=== PATIENT | female | born 1940 | race Asian ===

== ENCOUNTER → 2017-09-01 | Outpatient (CLI) | payer MEDICARE, OTHER | LOC: M LRY 13:28 | DX: M18.11 Unilateral primary osteoarthritis of first carpometacarpal joint, right hand (principal); M19.041 Primary osteoarthritis, right hand; M25.531 Pain in right wrist | CPT/HCPCS: 73110; G0463 ==

== ENCOUNTER → 2017-10-16 | Outpatient (CLI) | payer MEDICARE, OTHER ==
[2017-10-16 13:05] LABS: BASO # 0.1 10^3/uL (0.0-0.2); BASO % 0.6 % (0.0-1.0); EOS # 0.2 10^3/uL (0.0-0.50); EOS % 1.8 % (0.0-3.0); HEMATOCRIT 44.6 % (36.0-47.0); HEMOGLOBIN 14.2 g/dl (12.0-15.5); IMMATURE GRANULOCYTE % 0.4 % (0-3.0); LYMPH # 2.8 10^3/uL (1.5-4.5); LYMPH % 33.9 % (24.0-44.0); MEAN CORPUSCULAR HEMOGLOBIN 30.5 pg (27.0-33.0); MEAN CORPUSCULAR HGB CONC 31.8 g/dl (32.0-36.5); MEAN CORPUSCULAR VOLUME 95.9 fl (80.0-96.0); MONO # 0.7 10^3/uL (0.0-0.8); MONO % 8.9 % (0.0-5.0); NEUTROPHILS # 4.5 10^3/uL (1.8-7.7); NEUTROPHILS % 54.4 % (36.0-66.0); PLATELET COUNT, AUTOMATED 224 10^3/uL (150-450); RED BLOOD COUNT 4.65 10^6/uL (4.00-5.40); RED CELL DISTRIBUTION WIDTH 13.3 % (11.5-14.5); WHITE BLOOD COUNT 8.2 10^3/uL (4.0-10.0)
[2017-10-16 13:32] LABS: ESTIMATED AVERAGE GLUCOSE 272 MG/DL (60-110); HEMOGLOBIN A1c 11.1 %
[2017-10-16 13:36] LABS: ALBUMIN 3.5 GM/DL (3.2-5.2); ALBUMIN/GLOBULIN RATIO 0.92 (1.00-1.93); ALKALINE PHOSPHATASE 108 U/L (45-117); ALT/SGPT 29 U/L (12-78); ANION GAP 8 MEQ/L (8-16); AST/SGOT 20 U/L (7-37); BILIRUBIN,TOTAL 0.4 MG/DL (0.2-1.0); BLOOD UREA NITROGEN 33 MG/DL (7-18); CALCIUM LEVEL 9.4 MG/DL (8.8-10.2); CARBON DIOXIDE LEVEL 27 MEQ/L (21-32); CHLORIDE LEVEL 104 MEQ/L (98-107); CHOLESTEROL LEVEL 110 MG/DL (<200); CREATININE FOR GFR 1.77 MG/DL (0.55-1.30); GLOMERULAR FILTRATION RATE 29.8 (>39); GLUCOSE, FASTING 178 MG/DL (70-100); HDL CHOLESTEROL 47 MG/DL (>40); NON-HDL-C 63 MG/DL; POTASSIUM SERUM 4.9 MEQ/L (3.5-5.1); SODIUM LEVEL 139 MEQ/L (136-145); THYROID STIMULATING HORMONE 0.649 uIU/ML (0.358-3.740); TOTAL PROTEIN 7.3 GM/DL (6.4-8.2); TRIGLYCERIDES LEVEL 160 MG/DL (<150)
== END ==
LOC: M SMT 08:18
DX: Z13.220 Encounter for screening for lipoid disorders (principal); E11.9 Type 2 diabetes mellitus without complications
CPT/HCPCS: 84443

== ENCOUNTER → 2018-10-21 | Outpatient (CLI) | payer MEDICARE, OTHER ==
[~2018-10-21] MED LIST: ABIL2TAB PO; ACET-897 PO; AMLO5TAB6 PO; ARIP1TAB4 PO; ASPI81CH33 PO; ASPI81TA2 PO; CALC1TAB29 PO; CALC250T PO; CRES20TA2 PO; CYMB60CA3 PO; DICL1GEL3 TOP; FISH1000 PO; GLIP5TAB2 PO; HUMA100I SC; HUMA100I3 SC; HUMA100I5 SC; IBUP200C PO; INSULANT SC; LANTINJ4 SC; LIPI20TA PO; LISI5TAB PO; LOSA50TA88 PO; MICA40TA PO; MOBI4TAB PO; MONT10TA2 PO; NEXI40GR PO; ONE-TAB25 PO; OYSCTAB3 PO; SENO8.6T10 PO; SITA50TAB PO; [UNRECOGNIZED DRUG - REMARK]
--- NOTE | 2018-10-21 11:10 | REP ---
Right ankle four views: I suspect soft tissue edema laterally. This should be confirmed clinically. There is no fracture or dislocation. The mortise is symmetric. There are no calcifications or foreign bodies. Impression: Soft tissue edema. No fracture. Electronically Signed by Armond Alvarez MD 10/21/2018 11:02 A
--- NOTE | 2018-10-21 11:11 | REP ---
Right foot four views : There is no fracture or dislocation. Mineralization and joint spaces are normal. There are no calcifications or foreign bodies. Impression: Negative right foot . Electronically Signed by Armond Alvarez MD 10/21/2018 11:03 A
== END ==
LOC: M LRY 10:48
PROVIDERS: ATTEND Nurse Practitioner Family
DX: M25.471 Effusion, right ankle (principal); S99.911A Unspecified injury of right ankle, initial encounter; S99.921A Unspecified injury of right foot, initial encounter; W17.89XA Other fall from one level to another, initial encounter; Y92.9 Unspecified place or not applicable
CPT/HCPCS: 73610; 73630; G0463

== ENCOUNTER 2018-10-31 19:21 | Inpatient (IN) | payer MEDICARE, OTHER ==
[~2018-10-31] VITALS: Ht 157.5 cm; Wt 77.6 kg
[~2018-10-31 19:21] MED LIST changes: -ACET-897 PO; -AMLO5TAB6 PO; -ASPI81CH33 PO; -CALC1TAB29 PO; -CRES20TA2 PO; -DICL1GEL3 TOP; -HUMA100I3 SC; -HUMA100I5 SC; -LANTINJ4 SC; -LOSA50TA88 PO; -MICA40TA PO; -ONE-TAB25 PO
[2018-10-31 20:10] LABS: HEMATOCRIT 39.9 % (36.0-47.0); HEMOGLOBIN 12.8 g/dl (12.0-15.5); MEAN CORPUSCULAR HGB CONC 32.1 g/dl (32.0-36.5); MEAN CORPUSCULAR VOLUME 96.6 fl (80.0-96.0); PLATELET COUNT, AUTOMATED 154 10^3/uL (150-450); RED BLOOD COUNT 4.13 10^6/uL (4.00-5.40); WHITE BLOOD COUNT 7.8 10^3/uL (4.0-10.0)
[2018-10-31 20:41] LABS: ALBUMIN 3.5 GM/DL (3.2-5.2); BILIRUBIN,TOTAL 0.3 MG/DL (0.2-1.0); CALCIUM LEVEL 9.1 MG/DL (8.8-10.2); CREATININE FOR GFR 2.74 MG/DL (0.55-1.30); GLOMERULAR FILTRATION RATE 17.9 (>39); POTASSIUM SERUM 5.8 MEQ/L (3.5-5.1); TOTAL PROTEIN 6.8 GM/DL (6.4-8.2)
[2018-10-31] MEDS ORDERED: LEVEMIR (INSULIN DETEMIR) 1 UNITS/0.01ML SC SCH (21:00)
[2018-10-31] MEDS ORDERED: ROSUVASTATIN 10 MG TAB (CRESTOR) PO SCH (21:00)
[2018-10-31] MEDS ORDERED: DULoxetine 30 MG CAP (CYMBALTA) PO SCH (21:00)
[2018-10-31] MEDS ORDERED: HumaLOG INSULIN (NovoLOG) PER UNIT SC SCH (21:00)
[2018-10-31] MEDS ORDERED: HUMA100I3 SC (21:00)
[2018-10-31] MEDS ORDERED: CRES20TA2 PO (21:07)
[2018-10-31] MEDS ORDERED: ONE-TAB25 PO (21:07)
[2018-10-31] MEDS ORDERED: ASPI81CH33 PO (21:07)
[2018-10-31] MEDS ORDERED: CALC1TAB29 PO (21:07)
[2018-10-31] MEDS ORDERED: LANTINJ4 SC (21:07)
[2018-10-31] MEDS ORDERED: CYMB60CA3 PO (21:07)
[2018-10-31] MEDS ORDERED: LOSA50TA88 PO (21:07)
[2018-10-31] MEDS ORDERED: SOD POLYSTYRENE SULFONATE SUSP 15 GM/60 ML UD PO ONE (21:30)
[2018-10-31] MEDS ORDERED: ALBUTEROL SULFATE 2.5 MG/0.5 ML INH NEB SOLN INH ONE (21:30)
[2018-10-31] MEDS ORDERED: NS 1,000 ML IV ONE (21:30)
[2018-10-31] MEDS ORDERED: ACET-897 PO (22:16)
[2018-10-31] MEDS ORDERED: MICA40TA PO (22:16)
[2018-10-31] MEDS ORDERED: HUMA100I5 SC (22:16)
[2018-10-31] MEDS ORDERED: DICL1GEL3 TOP (22:16)
--- NOTE | 2018-10-31 22:39 | ECGEPIP ---
[facility] - ED Test Date: 2018-10-31 Pat Name: BASHIR LUGO Department: Room: - Gender: Female Dairy Specialist: carlos : 1940 Requested By: MICHAEL Blevins Order Number: [id number] Reading MD: Hay Arshad Measurements Intervals [place] Rate: 70 P: 14 SC: 182 QRS: -2 QRSD: 84 T: 68 QT: 399 QTc: 433 Interpretive Statements SINUS RHYTHM NONSPECIFIC T-WAVE ABNORMALITY NO PRIORS FOR COMPARISON Electronically Signed on 10-31-2018 22:39:26 EDT by Hay Arshad
[2018-10-31] MEDS ORDERED: ACETAMINOPHEN TAB 650MG DOSE (2X325MG) PO PRN (23:45)
[2018-11-01] VITALS (7 sets, daily range): BP systolic 107–164; BP diastolic 59–88
[2018-11-01] MEDS ORDERED: ACETAMINOPHEN 500 MG TAB PO PRN (00:15)
[2018-11-01] MEDS ORDERED: DEXTROSE 50% 50 ML SYRINGE IV PRN (00:15)
[2018-11-01] MEDS ORDERED: GLUCOSE 4 GM CHEW TABLET PO PRN (00:15)
[2018-11-01] MEDS ORDERED: GLUCAGON FOR INJ 1 MG VIAL (J1610) SC PRN (00:15)
[2018-11-01] MEDS ORDERED: traMADol 50 MG TAB PO PRN (00:15)
--- NOTE | 2018-11-01 00:39 | HPEPDOC ---
[facility] Medical History & Physical Date of Admission Nov 01, 2018 Date of Service: Nov 01, 2018 Attending Physician: NERY COLEMAN MD History and Physical CHIEF COMPLAINT: Dizziness and weaknesS HISTORY OF PRESENT ILLNESS: 78-year-old female with past medical history of COPD,CKD, hypertension, diabetes. Patient was having some dizziness and weakness and body itching. In the ER blood work done creatine 2.74 , up from 1.7 in 2018 and potassium 5.8. Patient started an IV fluid and referred to us for admission. Patient denied chest pain or shortness of breath. No nausea, vomiting. Patient will be admitted for further management PAST MEDICAL HISTORY: Diabetes type 2 Hypertension GERD CKD Hyperlipidemia Depression Anxiety SOCIAL HISTORY: Patient is , lives at home. She smokes but denies other drug use FAMILY HISTORY: She claimed both parents all H 80s to 90s with no history ALLERGIES: Please see below. REVIEW OF SYSTEMS: Positive weakness, positive dizziness. Positive itchy. The rest of the 12 point review of system normal HOME MEDICATIONS: Please see below. PHYSICAL EXAMINATION: VITAL SIGNS: Temperature , pulse , respiratory rate , blood pressure , pulse oximetry % on room air. GENERAL APPEARANCE: Awake, no distress HEENT: Unremarkable CARDIOVASCULAR: S1, S2, regular, no murmur LUNGS: Clear bilaterally. No wheezes, no rhonchi ABDOMEN: Soft, positive bowel sounds, nontender MUSCULOSKELETAL: No edema, 2+ pulses. Her extremity NEUROLOGICAL: Alert, oriented 4. nonfocal PSYCHIATRIC:Calm LABORATORY DATA: See below. IMAGING: EKG review, normal sinus rhythm no abnormalities MICROBIOLOGY: Please see below. ASSESSMENT/PLAN #1 acute on chronic renal failure. Hydration and monitor BUN/creatinine #2. Dizziness. Likely from renal failure Patient denied dizziness at present. #3. Weakness Secondary to renal failure. Hydration for now failure and likely patient will improve #4. Hyperkalemia Patient received Kayexalate and IV fluid. Repeat potassium. #5 hypertension On medication social monitor blood pressure closely #6. Hypercholesterolemia Continue medication #7. Depression and anxiety Medication #8 GERD on medication #9. Diabetes type 2 Accu-Chek with insulin coverage Heparin subcutaneous for DVT prophylaxis. Discussed with Dr. Coleman hospitalists. Monitor BUN and creatinine. We will reconcile medications when available. Spent 45 Minutes Vital Signs Vital Signs Date Time Temp Pulse Resp B/P (MAP) Pulse Ox O2 Delivery O2 Flow Rate FiO2 10/31/18 20:08 10/31/18 19:24 97.9 85 16 96 Room Air Laboratory Data Labs 24H Laboratory Tests 2 10/31/18 19:55: Nucleated Red Blood Cells % (auto) 0.0, Anion Gap 8, Glomerular Filtration Rate 17.9L, Blood Urea Nitrogen 38H, Creatinine 2.74H, Sodium Level 133L, Potassium Level 5.8H, Chloride Level 98, Carbon Dioxide Level 27, Calcium Level 9.1, Aspartate Amino Transf (AST/SGOT) 23, Alanine Aminotransferase (ALT/SGPT) 26, Alkaline Phosphatase 118H, Total Bilirubin 0.3, Total Protein 6.8, Albumin 3.5, Albumin/Globulin Ratio 1.06 CBC/BMP Laboratory Tests 10/31/18 19:55 Red Blood Count 4.13, Mean Corpuscular Volume 96.6 H, Mean Corpuscular Hemoglobin 31.0, Mean Corpuscular Hemoglobin Concent 32.1, Red Cell Distribution Width 13.7, Calcium Level 9.1, Aspartate Amino Transf (AST/SGOT) 23, Alanine Aminotransferase (ALT/SGPT) 26, Alkaline Phosphatase 118 H, Total Bilirubin 0.3, Total Protein 6.8, Albumin 3.5 Home Medications Scheduled Aspirin (Aspirin) 81 Mg Tab.chew, 81 MG PO DAILY Calcium Carbonate/Vitamin D3 (Calcium 600-Vit D3 800 Tablet) 1 Each Tablet, 1 TAB PO BID Duloxetine Hcl (Cymbalta) 60 Mg Capsule.dr, 60 MG PO QHS Insulin Glargine,Hum.rec.anlog (Lantus Solostar) 100 Unit/1 Ml Insuln.pen, 20 UNITS SC QHS Insulin Lispro (Humalog Kwikpen U-100) 100 Unit/1 Ml Insuln.pen, 1 DOSE SC DAILY 6-8 UNITS DAILY AROUND BREAKFAST Multivitamin (One Daily Multivitamin) 1 Each Tablet, 1 TAB PO DAILY Rosuvastatin Calcium (Crestor) 20 Mg Tablet, 20 MG PO QHS Telmisartan (Micardis) 40 Mg Tablet, 20 MG PO DAILY Scheduled PRN Acetaminophen (Tylenol Extra Strength) 500 Mg Tablet, 1,000 MG PO Q4H PRN for PAIN Diclofenac Sodium (Diclofenac Sodium) 1% 100GM Gel..gram., 2 GM TOP QID PRN for PAIN APPLIES TO RIGHT FOOT/ANKLE Allergies Coded Allergies: No Known Allergies (Unverified , 10/31/18) A-FIB/CHADSVASC A-FIB History Current/History of A-Fib/PAF?: No Current PO Anticoag Therapy: No KRYSTYNA BLAIR PA-C Nov 01, 2018 00:38
[2018-11-01] MEDS: DOCUSATE SODIUM 100 MG CAP PO SCH ×2 (02:07→09:35)
[2018-11-01] MEDS: NS 1,000 ML IV SCH ×2 (02:07→11:34)
[2018-11-01] MEDS ORDERED: HEPARIN SOD (PORCINE) 5000 UNITS/ML VIAL SQ SCH (06:00)
[2018-11-01] MEDS: HumaLOG INSULIN (NovoLOG) PER UNIT SC SCH ×3 (07:30→17:30)
[2018-11-01 07:43] LABS: CALCIUM LEVEL 8.3 MG/DL (8.8-10.2); CREATININE FOR GFR 2.14 MG/DL (0.55-1.30); GLOMERULAR FILTRATION RATE 23.9 (>39)
[2018-11-01] MEDS ORDERED: AMLO5TAB6 PO (08:48)
--- NOTE | 2018-11-01 08:55 | IPNPDOC ---
Date Seen The patient was seen on 11/01/18. Progress Note SUBJECTIVE: pt wants to go home. repeat creatinine still higher than baseline of 1.7. k5. no c/o pain,sob, weakness, nausea, vomiting,abd pain.repeat mp at noon and 7pm and plans for dc if k<5 and creatinine<1.8 with outpt fu w pcp and fabrication mig welder within 5days of discharge. Pt placed on low potassium renal diet. PHYSICAL EXAMINATION: VITAL SIGNS:pls see below GENERAL APPEARANCE: Awake, no distress HEENT: Unremarkable CARDIOVASCULAR: S1, S2, regular, no murmur LUNGS: Clear bilaterally. No wheezes, no rhonchi ABDOMEN: Soft, positive bowel sounds, nontender MUSCULOSKELETAL: No edema, 2+ pulses. Her extremity NEUROLOGICAL: Alert, oriented 4. nonfocal PSYCHIATRIC:Calm LABORATORY DATA: See below. IMAGING: see below EKG review, normal sinus rhythm no abnormalities MICROBIOLOGY: Please see below. ASSESSMENT/PLAN 78-year-old female with past medical history of COPD,CKD, hypertension, diabetes. Patient was having some dizziness and weakness and body itching. In the ER blood work done creatine 2.74 , up from 1.7 in 2018 and potassium 5.8. Patient started an IV fluid and referred to us for admission. Patient denied chest pain or shortness of breath. No nausea, vomiting. Patient will be admitted for further management acute on chronic renal failure 3. baseline creatinine 1.7 ARB discontinued and trial of ivfluids with NS at 100ml/hr repeat mp at noon and 7pm avoiding nephrotoxins, and renally dosing meds strict i/o no signs of metabolic acidosis, persistent hyperkalemia, or fluid overload yet no c/o obstructive uropathy and denies any hematuria, flank pain, to necessitate imaging to rule out kidney stones. Dizziness. Likely from renal failure Patient denied dizziness at present. Weakness Secondary to renal failure. Hydration for now failure and likely patient will improve Hyperkalemia Patient received Kayexalate and IV fluid. goal to keep k<5 and dc home on low potassium renal diet until back to baseline creatinine hypertension dc'ed arb on norvasc which can be titrated up to 5mg bid if needed Hypercholesterolemia Continue medication Depression and anxiety Medication GERD on medication Diabetes type 2 Accu-Chek with insulin coverage diet: low potassium renal diet until back to baseline creatinine of 1.7 disposition: dc if k<5 and creatinine<1.8 with outpt fu w pcp and fabrication mig welder within 5days of discharge. if cleared by physical therapy. stable for medsurg transfer. VS, I&O, 24H, Fishbone Vital Signs/I&O Vital Signs Date Time Temp Pulse Resp B/P (MAP) Pulse Ox O2 Delivery O2 Flow Rate FiO2 11/01/18 04:00 96.6 81 18 143/81 (101) 98 11/01/18 01:00 Room Air I&O- Last 24 Hours up to 6 AM 11/01/18 06:00 Intake Total 150 ml Output Total 0 ml Balance 150 ml Laboratory Data 24H LABS Laboratory Tests 2 10/31/18 19:55: Nucleated Red Blood Cells % (auto) 0.0, Anion Gap 8, Glomerular Filtration Rate 17.9L, Blood Urea Nitrogen 38H, Creatinine 2.74H, Sodium Level 133L, Potassium Level 5.8H, Chloride Level 98, Carbon Dioxide Level 27, Calcium Level 9.1, Aspartate Amino Transf (AST/SGOT) 23, Alanine Aminotransferase (ALT/SGPT) 26, Alkaline Phosphatase 118H, Total Bilirubin 0.3, Total Protein 6.8, Albumin 3.5, Albumin/Globulin Ratio 1.06 11/01/18 01:19: Bedside Glucose (Misc Panel) 259H 11/01/18 07:03: Anion Gap 6L, Glomerular Filtration Rate 23.9L, Blood Urea Nitrogen 29H, Creatinine 2.14H, Sodium Level 140#, Potassium Level 5.0, Chloride Level 108H, Carbon Dioxide Level 26, Calcium Level 8.3L CBC/BMP Laboratory Tests 10/31/18 19:55 Red Blood Count 4.13, Mean Corpuscular Volume 96.6 H, Mean Corpuscular He moglobin 31.0, Mean Corpuscular Hemoglobin Concent 32.1, Red Cell Distribution Width 13.7, Calcium Level 9.1, Aspartate Amino Transf (AST/SGOT) 23, Alanine Aminotransferase (ALT/SGPT) 26, Alkaline Phosphatase 118 H, Total Bilirubin 0.3, Total Protein 6.8, Albumin 3.5 11/01/18 01:20 11/01/18 07:03 Calcium Level 8.3 L ANA SHIRLEY MD Nov 01, 2018 08:55
[2018-11-01] MEDS ORDERED: amLODIPine 5 MG TAB PO SCH (09:00)
[2018-11-01] MEDS ORDERED: HEPARIN SOD (PORCINE) 5000 UNITS/ML VIAL SC SCH (09:00)
[2018-11-01] MEDS: SOD POLYSTYRENE SULFONATE SUSP 15 GM/60 ML UD PO SCH ×2 (11:33→13:30)
[2018-11-01 12:05] LABS: CREATININE FOR GFR 1.96 MG/DL (0.55-1.30); GLOMERULAR FILTRATION RATE 26.4 (>39); POTASSIUM SERUM 4.6 MEQ/L (3.5-5.1)
[2018-11-01 19:25] LABS: CALCIUM LEVEL 7.8 MG/DL (8.8-10.2); CREATININE FOR GFR 1.87 MG/DL (0.55-1.30); GLOMERULAR FILTRATION RATE 27.9 (>39)
[2018-11-02] MEDS ORDERED: PNEUMOCOCCAL VACCINE 0.5ML SYRINGE(90732) PNEUMOVAX 23 IM ONE (09:00)
--- NOTE | 2018-11-02 11:42 | CR ---
DATE OF CONSULTATION: 11/01/2018 REQUESTING PHYSICIAN: Dr. Nicci Coleman CONSULTING PHYSICIAN: Dr. Lew REASON FOR CONSULTATION: Management of acute kidney injury superimposed on chronic kidney disease. CHIEF COMPLAINT: The patient presented to the hospital with dizziness, weakness, and generalized itching. HISTORY OF PRESENT ILLNESS: Tevin Comer is a 78-year-old female with past medical history of hypertension, diabetes mellitus type 2, multiple other comorbidities, as mentioned below. She follows up with myself in the nephrology clinic. She has chronic kidney disease (CKD) III with a baseline creatinine of around 1.6 - 1.7. She presented to the hospital overnight with generalized body itching, weakness, and dizziness. She was found to have acute kidney injury with a creatinine of 2.7 in the emergency room. She was admitted under the hospitalist service. She was started on intravenous (IV) fluid hydration. Nephrology services was called for further help in the management of this patient. I saw and evaluated the patient today morning. The patient reports that she is feeling much better today as compared with yesterday. With the IV fluid hydration that she received, her renal function is improving. PAST MEDICAL HISTORY: Past medical history of diabetes mellitus type 2, chronic kidney disease stage III, baseline creatinine around 1.7, hypertension, gastroesophageal reflux disease, hyperlipidemia, depression, and anxiety. PAST SURGICAL HISTORY: Past surgical history is unknown. ALLERGIES: No known drug allergies. FAMILY HISTORY: No significant family history of end-stage renal disease requiring hemodialysis. SOCIAL HISTORY: The patient lives at home. She denies any smoking, illicit drug abuse, or alcohol abuse. The patient also spent some time in [place] as well. REVIEW OF SYSTEMS: Constitutional: She denies any fevers or chills. She did report dizziness. Eyes: She denies any blurry vision, double vision. Ears, nose, and throat (ENT): She denies any dysphagia, odynophagia, ear discharge. Cardiovascular: She denies any chest pain, shortness of breath. She denies any chest pain. Respiratory: She denies any shortness of breath. All other review of systems is negative. PHYSICAL EXAMINATION GENERAL: The patient is awake, alert, oriented times three, sitting up in the bed in no apparent distress. VITAL SIGNS: Temperature is 97.5 degrees Fahrenheit, blood pressure 126/77, pulse 98, respiratory of 18, saturating 97% on room air. HEAD AND NECK EXAM: Extraocular muscles intact. Pupils equally round and reactive to light. Mucous membranes are moist. Neck is supple. There is no JVD. CARDIOVASCULAR: S1, S2 regular rate. No edema of the bilateral lower extremities. RESPIRATORY: Chest is clear to auscultation bilaterally. Bilateral equal air entry. No rales or rhonchi. ABDOMEN: Soft. Positive bowel sounds. Nontender. No organomegaly. MUSCULOSKELETAL: No clubbing or cyanosis. Pulses are 2+. PIPE COVERING MOLDER: No focal deficits. Power is 5/5 in all extremities. SKIN: No rashes or ulcers. PSYCH: Normal mood and affect. LAB REVIEW: CBC showed a WBC of 7.8, hemoglobin 12.8, platelets are 154. BMP showed sodium 142, potassium 4, chloride 109, bicarb 21, BUN 21, creatinine is 1.87, glucose 204, calcium 7.8. The patient's creatinine on arrival was 2.7. CURRENT INPATIENT MEDICATIONS: The patient's medications include normal saline at 100 mL an hour. He is on Tylenol p.r.n., amlodipine 5 mg daily, Colace 100 mg p.o. twice a day, heparin q. 8, Cymbalta 60 mg q.h.s., insulin Levemir 20 units subcu q.h.s., insulin sliding scale, rosuvastatin 20 mg daily, Kayexalate 30 grams p.o. times one dose and tramadol p.r.n. ASSESSMENT: 78-year-old female with diabetes mellitus type 2, hypertension, chronic kidney disease stage III, hyperlipidemia, depression and anxiety admitted at this time with dizziness and acute renal failure. PLAN: 1. Acute renal failure superimposed on chronic kidney disease stage III. The patient was admitted and started on IV fluid hydration, renal function is improving. The patient was taking telmisartan 20 mg p.o. daily which was stopped. 2. Hypertension. Blood pressure is optimal. Hold further use of JONATAN inhibitors or angiotensin receptor blockers. Okay to continue amlodipine 5 mg p.o. daily. Hold further IV fluids. The patient is hemodynamically stable and renal function is improving back to baseline. 3. Hyperkalemia. The patient's potassium on arrival was 5.8. She was given IV fluid hydration and given Kayexalate. Potassium has improved to 4 now, which is within the acceptable range. 4. Diabetes mellitus type 2. Continue insulin sliding scale and long-acting insulin. Avoid use of metformin at this time. DISPOSITION: If the patient's renal function improves back to baseline she can be discharged and she can follow-up with nephrology within 2 weeks after discharge. Thank you for involving me in the care of this patient. I shall be happy to follow the patient along with you.
== END 2018-11-01 20:51 | disposition home or self-care (01) | DRG 641 ==
LOC: M ED 19:21 → M ED INP 11-01 00:08 → M PCU 11-01 01:20
PROVIDERS: ADMIT Internal Medicine Nephrology; ATTEND Internal Medicine Nephrology
DX: E87.5 Hyperkalemia (principal); N17.9 Acute kidney failure, unspecified; J44.9 Chronic obstructive pulmonary disease, unspecified; I12.9 Hypertensive chronic kidney disease with stage 1 through stage 4 chronic kidney disease, or unspecified chronic kidney disease; E11.22 Type 2 diabetes mellitus with diabetic chronic kidney disease; K21.9 Gastro-esophageal reflux disease without esophagitis; N18.3 Chronic kidney disease, stage 3 (moderate); E78.5 Hyperlipidemia, unspecified; F32.9 Major depressive disorder, single episode, unspecified; F41.9 Anxiety disorder, unspecified; F17.200 Nicotine dependence, unspecified, uncomplicated; Z79.82 Long term (current) use of aspirin; Z79.899 Other long term (current) drug therapy

== ENCOUNTER → 2018-10-31 | Outpatient (REF) | payer MEDICARE, OTHER ==
[~2018-10-31] MED LIST changes: -ARIP1TAB4 PO; -SENO8.6T10 PO
[2018-10-31 16:30] LABS: BASO # 0.1 10^3/uL (0.0-0.2); BASO % 0.6 % (0.0-1.0); EOS # 0.1 10^3/uL (0.0-0.50); EOS % 1.4 % (0.0-3.0); HEMATOCRIT 40.7 % (36.0-47.0); HEMOGLOBIN 13.1 g/dl (12.0-15.5); LYMPH # 3.3 10^3/uL (1.5-4.5); MEAN CORPUSCULAR HEMOGLOBIN 30.5 pg (27.0-33.0); MEAN CORPUSCULAR HGB CONC 32.2 g/dl (32.0-36.5); MEAN CORPUSCULAR VOLUME 94.9 fl (80.0-96.0); MONO # 0.7 10^3/uL (0.0-0.8); MONO % 8.7 % (0.0-5.0); NEUTROPHILS # 4.1 10^3/uL (1.8-7.7); NEUTROPHILS % 48.9 % (36.0-66.0); PLATELET COUNT, AUTOMATED 177 10^3/uL (150-450); RED BLOOD COUNT 4.29 10^6/uL (4.00-5.40); WHITE BLOOD COUNT 8.3 10^3/uL (4.0-10.0)
[2018-10-31 16:44] LABS: ALBUMIN 3.3 GM/DL (3.2-5.2); BILIRUBIN,TOTAL 0.5 MG/DL (0.2-1.0); CALCIUM LEVEL 9.2 MG/DL (8.8-10.2); CREATININE FOR GFR 2.62 MG/DL (0.55-1.30); GLOMERULAR FILTRATION RATE 18.9 (>39); THYROID STIMULATING HORMONE 0.957 uIU/ML (0.358-3.740); TOTAL PROTEIN 6.5 GM/DL (6.4-8.2)
== END ==
LOC: M SFHCLERA 13:13
PROVIDERS: ATTEND Physician Assistant
DX: L29.9 Pruritus, unspecified (principal); E11.22 Type 2 diabetes mellitus with diabetic chronic kidney disease; E78.5 Hyperlipidemia, unspecified

== ENCOUNTER → 2018-11-18 | Outpatient (CLI) | payer MEDICARE, OTHER ==
[~2018-11-18] MED LIST changes: +ACET-897 PO; +AMLO5TAB6 PO; +ASPI81CH33 PO; +CALC1TAB29 PO; +CRES20TA2 PO; +DICL1GEL3 TOP; +HUMA100I3 SC; +HUMA100I5 SC; +LANTINJ4 SC; +LOSA50TA88 PO; +MICA40TA PO; +ONE-TAB25 PO
--- NOTE | 2018-11-18 11:13 | REP ---
MRI RIGHT ANKLE: TECHNIQUE: Sagittal proton density, STIR, axial proton density fat sat, T1, coronal proton density, STIR. There is diffuse edema in the talus. Thin linear horizontal hypointense signal is seen in the talar dome predominantly laterally in a subchondral location. Findings are most consistent with occult fracture of the talus. No other abnormal bone marrow signal is seen of the visualized osseous structures. There is a small joint effusion. There is scattered surrounding superficial soft tissue edema. The Achilles, anterior tibial, posterior tibial, flexor hallucis longus, flexor digitorum longus and peroneal tendons are all intact without significant tendosynovitis. The anterior and posterior talofibular, calcaneofibular and deltoid ligaments appear intact. Plantar tendon is intact. No abnormal signal is seen in the region of the plantar fascia. No ganglion cyst is seen. IMPRESSION: Occult nondisplaced subchondral fracture talar dome with associated edema of the talus. Small joint effusion. Electronically Signed by Armond Cisneros MD 11/19/2018 09:33 A
== END ==
LOC: M RAD 06:34
PROVIDERS: ATTEND Nurse Practitioner Family
DX: M25.571 Pain in right ankle and joints of right foot (principal)

== ENCOUNTER → 2019-03-07 | Outpatient (CLI) | payer MEDICARE, OTHER ==
[~2019-03-07] MED LIST changes: +ARIP1TAB4 PO; +SENO8.6T10 PO
--- NOTE | 2019-03-08 08:20 | REP ---
RIGHT FOOT COMPLETE: 03/07/2019. CLINICAL HISTORY: Pain in the right foot. FINDINGS: Four views provided. No plantar or Achilles insertional spurs. On the lateral view, the calcaneus and talus are without visible fracture on this foot x-ray. Subtalar joints intact. Talonavicular and calcaneocuboid joints are normal. Tarsal bones and articulations are intact. Metatarsals and phalanges unremarkable. MTP joints show some degenerative changes. 1st MTP and IP joints show diffuse narrowing, representing degenerative change. IMPRESSION: 1. Degenerative changes 1st MTP joint and all of the IP joints with the bones demineralized, but no fracture, avulsion, or other acute finding. Electronically Signed by Winston Mars MD 03/08/2019 09:10 A
== END ==
LOC: M LRY 16:23
PROVIDERS: ATTEND Physician Assistant
DX: M19.071 Primary osteoarthritis, right ankle and foot (principal)
CPT/HCPCS: 73630; 80048; 84550; 85027; G0463

== ENCOUNTER → 2019-03-07 | Outpatient (REF) | payer MEDICARE, OTHER ==
[2019-03-07 20:01] LABS: HEMATOCRIT 44.6 % (36.0-47.0); HEMOGLOBIN 14.4 g/dl (12.0-15.5); MEAN CORPUSCULAR HEMOGLOBIN 30.4 pg (27.0-33.0); MEAN CORPUSCULAR HGB CONC 32.3 g/dl (32.0-36.5); MEAN CORPUSCULAR VOLUME 94.3 fl (80.0-96.0); PLATELET COUNT, AUTOMATED 182 10^3/uL (150-450); RED BLOOD COUNT 4.73 10^6/uL (4.00-5.40); WHITE BLOOD COUNT 7.3 10^3/uL (4.0-10.0)
[2019-03-07 20:28] LABS: CALCIUM LEVEL 9.2 MG/DL (8.8-10.2); CREATININE FOR GFR 1.74 MG/DL (0.55-1.30); GLOMERULAR FILTRATION RATE 30.3 (>39); POTASSIUM SERUM 5.9 MEQ/L (3.5-5.1); URIC ACID 5.4 MG/DL (2.6-6.0)
== END ==
LOC: M SFHCLERA 17:15
PROVIDERS: ATTEND Physician Assistant
DX: M25.476 Effusion, unspecified foot (principal)

== ENCOUNTER 2019-03-08 13:32 | Emergency (ER) | payer MEDICARE, OTHER ==
[~2019-03-08] VITALS: Ht 157.5 cm; Wt 74.1 kg
[~2019-03-08 13:32] MED LIST changes: -ARIP1TAB4 PO; -SENO8.6T10 PO
[2019-03-08] MEDS ORDERED: DEXTROSE 50% 50 ML SYRINGE As Ordered ONE (13:41)
[2019-03-08] MEDS ORDERED: DEXTROSE 50% 50 ML SYRINGE IV STA ×2 (13:41→15:58)
[2019-03-08] MEDS ORDERED: NS 1,000 ML IV ONE (13:45)
[2019-03-08 13:57] LABS: VENOUS BASE EXCESS -1.3 (-2.0-2.0); VENOUS HCO3 23.4 MEQ/L (23.0-27.0); VENOUS O2 SATURATION 82.2 % (60.0-80.0); VENOUS PARTIAL PRESSURE CO2 39.7 mmHg (38.0-50.0); VENOUS PARTIAL PRESSURE O2 45.3 mmHg (30.0-50.0); VENOUS PH 7.389 UNITS (7.330-7.430); VENOUS TOTAL CO2 24.7 MEQ/L (24.0-28.0)
[2019-03-08] MEDS ORDERED: SENO8.6T10 PO (13:57)
[2019-03-08] MEDS ORDERED: ARIP1TAB4 PO (13:58)
[2019-03-08 14:05] LABS: HEMATOCRIT 45.9 % (36.0-47.0); HEMOGLOBIN 14.6 g/dl (12.0-15.5); MEAN CORPUSCULAR HEMOGLOBIN 30.1 pg (27.0-33.0); MEAN CORPUSCULAR HGB CONC 31.8 g/dl (32.0-36.5); MEAN CORPUSCULAR VOLUME 94.6 fl (80.0-96.0); PLATELET COUNT, AUTOMATED 201 10^3/uL (150-450); RED BLOOD COUNT 4.85 10^6/uL (4.00-5.40)
[2019-03-08 14:30] LABS: WHITE BLOOD COUNT 13.6 10^3/uL (4.0-10.0)
[2019-03-08 14:31] LABS: ACETONE/KETONE 1.19 MG/DL (<2.81); ALBUMIN 3.6 GM/DL (3.2-5.2); ALT/SGPT 29 U/L (12-78); BILIRUBIN,DIRECT 0.1 MG/DL (0.0-0.2); BILIRUBIN,TOTAL 0.2 MG/DL (0.2-1.0); BLOOD UREA NITROGEN 31 MG/DL (7-18); CARBON DIOXIDE LEVEL 25 MEQ/L (21-32); CHLORIDE LEVEL 104 MEQ/L (98-107); CK-MB VALUE MASS 1.9 NG/ML (<3.6); CPK CREATINE PHOSPHOKINASE 142 U/L (26-192); CREATININE FOR GFR 1.92 MG/DL (0.55-1.30); GLUCOSE, FASTING 46 MG/DL (70-100); MB/CK RELATIVE INDEX 1.34 (< OR =4); POTASSIUM SERUM 3.5 MEQ/L (3.5-5.1); SODIUM LEVEL 139 MEQ/L (136-145); TOTAL PROTEIN 7.2 GM/DL (6.4-8.2); TROPONIN I < 0.02 NG/ML (< 0.10)
[2019-03-08 15:02] LABS: ANISOCYTOSIS 1+; ATYPICAL LYMPH 13 % (0-5); LYMPHOCYTES 46 % (16-44); MONOCYTES 8 % (0-5); NEUTROPHILS 33 % (28-66); PLATELET ESTIMATE NORMAL (NORMAL)
[2019-03-08 15:07] LABS: HEMOGLOBIN A1c 11.3 %
--- NOTE | 2019-03-08 15:09 | REP ---
AP PORTABLE CHEST: 03/08/2019. COMPARISON: Chest x-ray, 09/16/2012. CLINICAL HISTORY: DKA. FINDINGS: Lungs adequately inflated. There is no infiltrate, effusion, atelectasis, or mass. Heart is not enlarged. The aorta is tortuous and calcified at the arch and unchanged. Airway intact. No widening of the mediastinum. No pulmonary edema. Bones without acute finding. IMPRESSION: 1. No acute cardiopulmonary change. Stable chest with a tortuous ectatic calcified aorta. Electronically Signed by Winston Mars MD 03/08/2019 05:21 P
[2019-03-08] MEDS ORDERED: LABETALOL HCL 100 MG/20 ML VIAL IV STA (15:58)
[2019-03-08 16:06] VITALS: BP 166/87
[2019-03-08 16:30] LABS: VENOUS BASE EXCESS -3.9 (-2.0-2.0); VENOUS HCO3 22.8 MEQ/L (23.0-27.0); VENOUS O2 SATURATION 94.2 % (60.0-80.0); VENOUS PARTIAL PRESSURE CO2 48.1 mmHg (38.0-50.0); VENOUS PARTIAL PRESSURE O2 79.3 mmHg (30.0-50.0); VENOUS PH 7.294 UNITS (7.330-7.430); VENOUS STANDARD HCO3 21.2 MEQ/L; VENOUS TOTAL CO2 24.3 MEQ/L (24.0-28.0)
[2019-03-08 18:53] VITALS: BP 140/81
--- NOTE | 2019-03-09 16:41 | ECGEPIP ---
[facility] - ED Test Date: 2019-03-08 Pat Name: BASHIR LUGO Department: Room: - Gender: Female Re Examiner: teodoro : 1940 Requested By: ADRIEN MCDANIELS Order Number: [id number] Reading MD: Esther Tucker Measurements Intervals [place] Rate: 80 P: 21 [place]: 177 QRS: -1 QRSD: 90 T: 61 QT: 375 QTc: 433 Interpretive Statements SINUS RHYTHM NONSPECIFIC T-WAVE ABNORMALITY INCREASED RATE 10/31/18 Electronically Signed on 03-09-2019 16:41:13 EST by Esther Tucker
== END 2019-03-08 19:04 | disposition home or self-care (01) ==
LOC: M ED 13:32
DX: E10.649 Type 1 diabetes mellitus with hypoglycemia without coma (principal); I10 Essential (primary) hypertension; Z79.4 Long term (current) use of insulin; Z79.82 Long term (current) use of aspirin; Z79.899 Other long term (current) drug therapy